=== PATIENT | male | born 1985 | race Caucasian/White ===

== ENCOUNTER 2016-07-17 23:02 | Inpatient (IN) | payer OTHER ==
[~2016-07-17] VITALS: Ht 185.4 cm; Wt 77.4 kg
[~2016-07-17 23:02] MED LIST: ATARAX,VISTARIL25 MG PO; CITALOPRAM HBR20 MG PO; CLONIDINE HCL0.1 MG PO; NOHOMEMEDS; TRAZODONE HCL50 MG PO; ZOFRAN4 MG PO
[2016-07-18 00:25] LABS: EOSINOPHIL (%) 0.2 % (0-5); HEMATOCRIT 37.4 % (38.0-50.0); IMMATURE GRANULOCYTE (%) 0.4 % (0.0-0.7); IMMATURE GRANULOCYTE COUNT 0.6 K/uL; LYMPHOCYTE COUNT 1.7 K/uL (1.0-2.8); MCH 28.3 PG (29.0-34.0); MCV 83.5 FL (86-99); MEAN PLAT.VOLUME 9.8 uM^3 (9.0-12.4); MONOCYTE COUNT 0.9 K/uL (0-0.8); NEUTROPHIL (%) 81.6 % (45-76); NEUTROPHIL COUNT 11.9 K/uL (1.8-6.4); PLATELET COUNT 255 K/uL (156-360); RBC DIS.WIDTH-CV 13.7 % (11.8-14.6); RBC DIS.WIDTH-SD 40.7 % (39-53); RED BLOOD COUNT 4.48 M/uL (4.00-5.50); WHITE BLOOD COUNT 14.6 K/uL (4.1-10.2)
[2016-07-18 00:33] LABS: CHLORIDE 99 mEq/L (99-109); POTASSIUM 3.9 mEq/L (3.7-5.4); SODIUM 135 mEq/L (136-147)
[2016-07-18 00:36] LABS: GLUCOSE 159 mg/dL (70-99)
[2016-07-18 00:37] LABS: ANION GAP 10 MEQ/L (2-14); TOTAL BILIRUBIN 0.3 mg/dL (0.0-1.0)
[2016-07-18 00:38] LABS: SERUM ETHYL ALCOHOL < 10 mg/dL
[2016-07-18 00:39] LABS: ALKALINE PHOSPHATASE 88 IU/L (3-129); GFR ESTIMATE (CALCULATED) > 59 mL/min/
[2016-07-18 00:40] LABS: UREA NITROGEN (BUN) 16 mg/dL (9-23)
[2016-07-18 00:52] LABS: CREATINE KINASE 2747 IU/L (1-294)
[2016-07-18 00:53] LABS: TROP-I INTERPRETATION NEGATIVE; TROPONIN-I < 0.01 ng/mL (0.0-0.30)
[2016-07-18] MEDS ORDERED: SEROQUEL300 MG PO (01:15)
[2016-07-18] MEDS ORDERED: CYMBALTA60 MG PO (01:16)
[2016-07-18] MEDS ORDERED: ALPRAZOLAM0.5 MG PO (01:16)
[2016-07-18 06:18] VITALS: BP 120/67
[2016-07-18 07:32] LABS: HEMATOCRIT 36.3 % (38.0-50.0); MCH 28.4 PG (29.0-34.0); MCHC 33.1 G/DL (30.0-36.0); MEAN PLAT.VOLUME 10.2 uM^3 (9.0-12.4); PLATELET COUNT 193 K/uL (156-360); RBC DIS.WIDTH-CV 13.9 % (11.8-14.6); RBC DIS.WIDTH-SD 43.6 % (39-53); RED BLOOD COUNT 4.22 M/uL (4.00-5.50)
[2016-07-18 07:35] LABS: WHITE BLOOD COUNT 8.5 K/uL (4.1-10.2)
[2016-07-18 07:39] LABS: ANION GAP 5 MEQ/L (2-14); CHLORIDE 100 MEQ/L (99-109); GFR ESTIMATE (CALCULATED) > 59 mL/min/; GLUCOSE 141 mg/dL (70-99); POTASSIUM 3.4 MEQ/L (3.7-5.4); SAMPLE HEMOLYSIS CHECK 0; SAMPLE ICTERIC CHECK 0; SAMPLE LIPEMIA CHECK 0; SODIUM 134 MEQ/L (136-147); UREA NITROGEN (BUN) 12 mg/dL (9-23)
[2016-07-18 07:43] VITALS: BP 111/63
[2016-07-18 11:32] VITALS: BP 117/65
[2016-07-18 15:08] LABS: TOTAL CK 1327 IU/L (1-294)
[2016-07-18 15:10] LABS: CREATINE KINASE 1327 IU/L (1-294)
[2016-07-18 15:32] VITALS: BP 117/64
[2016-07-18 15:44] LABS: CK-MB 4.7 ng/mL (0.0-4.9)
[2016-07-18 19:44] VITALS: BP 116/70
[2016-07-18 23:50] VITALS: BP 117/73
[2016-07-19 04:29] VITALS: BP 111/57
[2016-07-19 05:39] LABS: HEMATOCRIT 36.4 % (38.0-50.0); MCH 28.8 PG (29.0-34.0); MCV 87.3 FL (86-99); MEAN PLAT.VOLUME 10.3 uM^3 (9.0-12.4); PLATELET COUNT 169 K/uL (156-360); RBC DIS.WIDTH-SD 44.3 % (39-53); RED BLOOD COUNT 4.17 M/uL (4.00-5.50); WHITE BLOOD COUNT 7.3 K/uL (4.1-10.2)
[2016-07-19 06:06] LABS: ANION GAP 8 MEQ/L (2-14); CHLORIDE 103 MEQ/L (99-109); GFR ESTIMATE (CALCULATED) > 59 mL/min/; POTASSIUM 3.6 MEQ/L (3.7-5.4); SAMPLE HEMOLYSIS CHECK 0; SAMPLE ICTERIC CHECK 0; SAMPLE LIPEMIA CHECK 0; SODIUM 139 MEQ/L (136-147); UREA NITROGEN (BUN) 7 mg/dL (9-23)
[2016-07-19 06:07] LABS: GLUCOSE 92 mg/dL (70-99)
[2016-07-19 07:53] VITALS: BP 112/62
[2016-07-19 11:09] VITALS: BP 119/72
[2016-07-19 11:39] LABS: HBSG INDEX 0.23
[2016-07-19 11:41] LABS: ANTI-HEPATITIS A VIRUS (IGM) Nonreactive; HAV INDEX 0.28
[2016-07-19 11:43] LABS: ANTI-HEPATITIS B CORE (IGM) Nonreactive; HBC IgM INDEX 0.11; HIV INDEX 0.08; HIV-1/2 AB/AG COMBO Nonreactive
[2016-07-19 11:50] LABS: HPCA INDEX 15.26
[2016-07-19 16:08] VITALS: BP 123/73
[2016-07-19 19:31] VITALS: BP 121/78
[2016-07-19 23:53] VITALS: BP 118/78
[2016-07-20 03:54] VITALS: BP 98/57
[2016-07-20 05:58] LABS: EOSINOPHIL (%) 2.2 % (0-5); EOSINOPHIL COUNT 0.2 K/uL (0-0.3); HEMATOCRIT 37.7 % (38.0-50.0); IMMATURE GRANULOCYTE (%) 0.3 % (0.0-0.7); LYMPHOCYTE COUNT 2.6 K/uL (1.0-2.8); MCH 28.3 PG (29.0-34.0); MCHC 32.6 G/DL (30.0-36.0); MCV 86.9 FL (86-99); MEAN PLAT.VOLUME 10.2 uM^3 (9.0-12.4); MONOCYTE (%) 6.7 % (3-12); MONOCYTE COUNT 0.5 K/uL (0-0.8); NEUTROPHIL (%) 53.7 % (45-76); NEUTROPHIL COUNT 3.7 K/uL (1.8-6.4); PLATELET COUNT 195 K/uL (156-360); RBC DIS.WIDTH-CV 13.6 % (11.8-14.6); RBC DIS.WIDTH-SD 43.3 % (39-53); RED BLOOD COUNT 4.34 M/uL (4.00-5.50); WHITE BLOOD COUNT 6.9 K/uL (4.1-10.2)
[2016-07-20 06:21] LABS: ANION GAP 5 MEQ/L (2-14); CHLORIDE 106 MEQ/L (99-109); GFR ESTIMATE (CALCULATED) > 59 mL/min/; GLUCOSE 98 mg/dL (70-99); POTASSIUM 4.3 MEQ/L (3.7-5.4); SAMPLE HEMOLYSIS CHECK 0; SAMPLE ICTERIC CHECK 0; SAMPLE LIPEMIA CHECK 0; SODIUM 141 MEQ/L (136-147); UREA NITROGEN (BUN) 4 mg/dL (9-23)
[2016-07-20 08:22] VITALS: BP 112/71
[2016-07-20 10:40] LABS: CREATINE KINASE 671 IU/L (1-294)
[2016-07-20 11:49] VITALS: BP 113/68
[2016-07-20 15:58] VITALS: BP 119/76
[2016-07-20 19:27] VITALS: BP 120/80
[2016-07-20 23:33] VITALS: BP 122/81
[2016-07-21 03:30] VITALS: BP 94/55
[2016-07-21 08:07] VITALS: BP 132/82
[2016-07-21 09:12] VITALS: BP 132/82
[2016-07-21] MEDS ORDERED: LEVAQUIN500 MG PO (10:11)
[2016-07-21] MEDS ORDERED: PERCOCET 5/31 TABLET PO (10:11)
[2016-07-21] MEDS ORDERED: IBUPROFEN800 MG PO (10:24)
== END 2016-07-21 12:41 | disposition home or self-care (01) | DRG 564 ==
LOC: EME → TRA → EDBD 23:02 → TRA 23:02 → EME 23:02 → EDOF 07-18 02:36 → 3EAST 07-18 02:36 → EDOF 07-18 02:36 → 3EAST 07-18 04:42
PROVIDERS: Emergency Medicine; Hospitalist; Internal Medicine; Surgery
DX: S02.81XA Fracture of other specified skull and facial bones, right side, initial encounter for closed fracture (principal); J98.51 Mediastinitis; S22.22XA Fracture of body of sternum, initial encounter for closed fracture; F11.23 Opioid dependence with withdrawal; T79.7XXA Traumatic subcutaneous emphysema, initial encounter; J98.11 Atelectasis; F33.9 Major depressive disorder, recurrent, unspecified; T40.2X1A Poisoning by other opioids, accidental (unintentional), initial encounter; S00.11XA Contusion of right eyelid and periocular area, initial encounter; S00.12XA Contusion of left eyelid and periocular area, initial encounter; W19.XXXA Unspecified fall, initial encounter; G80.9 Cerebral palsy, unspecified; F41.9 Anxiety disorder, unspecified; F17.210 Nicotine dependence, cigarettes, uncomplicated; G89.11 Acute pain due to trauma; T79.6XXA Traumatic ischemia of muscle, initial encounter; S80.211A Abrasion, right knee, initial encounter; S40.812A Abrasion of left upper arm, initial encounter; S40.811A Abrasion of right upper arm, initial encounter; S20.311A Abrasion of right front wall of thorax, initial encounter; S20.312A Abrasion of left front wall of thorax, initial encounter; Z82.49 Family history of ischemic heart disease and other diseases of the circulatory system; Y92.019 Unspecified place in single-family (private) house as the place of occurrence of the external cause; Z91.041 Radiographic dye allergy status
CPT/HCPCS: 70450; 70486; 71020; 71250; 74176; 74220; 80048; 80053; 80074; 81003; 82550; 82550 91; 82553; 83735; 84100; 84484; 85025; 85027; 86703; 93005; 99281; 99285; G0480; J0572; J1170; J1956; J2270; J3480; J7030; S0028

== ENCOUNTER 2016-09-30 08:03 | Emergency (ER) | payer OTHER ==
[~2016-09-30] VITALS: Ht 188 cm; Wt 78.3 kg
[~2016-09-30 08:03] MED LIST changes: +ALPRAZOLAM0.5 MG PO; +CYMBALTA60 MG PO; +IBUPROFEN800 MG PO; +LEVAQUIN500 MG PO; +PERCOCET 5/31 TABLET PO; +SEROQUEL300 MG PO
[2016-09-30 09:02] LABS: EOSINOPHIL (%) 0 % (0-5); HEMATOCRIT 38.9 % (38.0-50.0); IMMATURE GRANULOCYTE COUNT 0.2 K/uL; INSTRUMENT ABS NEUTROPHIL CT 19.9 K/uL; LYMPHOCYTE COUNT 1.2 K/uL (1.0-2.8); MCHC 32.1 G/DL (30.0-36.0); MCV 87.2 FL (86-99); MEAN PLAT.VOLUME 9.2 uM^3 (9.0-12.4); MONOCYTE (%) 2.8 % (3-12); MONOCYTE COUNT 0.6 K/uL (0-0.8); NEUTROPHIL (%) 90.5 % (45-76); NEUTROPHIL COUNT 19.9 K/uL (1.8-6.4); PLATELET COUNT 256 K/uL (156-360); RBC DIS.WIDTH-CV 13.3 % (11.8-14.6); RBC DIS.WIDTH-SD 42.2 % (39-53); RED BLOOD COUNT 4.46 M/uL (4.00-5.50)
[2016-09-30 09:13] LABS: CHLORIDE 105 mEq/L (99-109); POTASSIUM 3.8 mEq/L (3.7-5.4); SODIUM 137 mEq/L (136-147)
[2016-09-30 09:15] LABS: GLUCOSE 160 mg/dL (70-99)
[2016-09-30 09:16] LABS: ANION GAP 12 MEQ/L (2-14)
[2016-09-30 09:18] LABS: SERUM ETHYL ALCOHOL < 10 mg/dL
[2016-09-30 09:19] LABS: GFR ESTIMATE (CALCULATED) > 59 mL/min/
[2016-09-30 09:20] LABS: UREA NITROGEN (BUN) 12 mg/dL (9-23)
[2016-09-30 09:48] LABS: ADD MIUA? YES; BILIRUBIN NEGATIVE; BLOOD NEGATIVE; COLOR AMBER ((YELLOW)); GLUCOSE (STRIP) NEGATIVE; KETONES NEGATIVE; LEUKOCYTES NEGATIVE; NITRITE NEGATIVE; PROTEIN (STRIP) 100; SPECIFIC GRAVITY 1.021 (1.000-1.030); UROBILINOGEN 0.2 MG/DL (0.2-1.0)
[2016-09-30 09:58] LABS: AMPHETAMINE NEGATIVE (500 ng/mL); BARBITURATES NEGATIVE (200 ng/mL); BENZODIAZEPINES NEGATIVE (150 ng/mL); COCAINE PRESUMPTIVE POSITIVE (150 ng/mL); INTERNAL CONTROLS VALID? YES; METHADONE NEGATIVE (200 ng/mL); METHAMPHETAMINE NEGATIVE (500 ng/mL); OPIATES (MORPHINE) PRESUMPTIVE POSITIVE (100 ng/mL); OXYCODONE NEGATIVE (100 ng/mL); PHENCYCLIDINE NEGATIVE (25 ng/mL); PROPOXYPHENE NEGATIVE (300 ng/mL); THC CANNABINOIDS NEGATIVE (50 ng/mL); TRICYCLIC ANTIDEPRESSANTS NEGATIVE (300 ng/mL)
[2016-09-30 09:59] LABS: ADD MEDTOX COMMENT Y
[2016-09-30 10:12] LABS: BACTERIA 1+ /HPF; EPITHELIAL CELLS 1+ /HPF; MUCUS 2+ /LPF; RED BLOOD CELLS NONE SEEN /HPF (0-5); WHITE BLOOD CELLS 0-5 /HPF (0-5)
[2016-09-30 10:52] LABS: OPIATES QUANTITATIVE VALUE 0 NG/ML
[2016-09-30] MEDS ORDERED: NARCAN4 MG NS (14:14)
[2016-09-30 14:22] VITALS: BP 102/74
== END 2016-09-30 14:24 | disposition home or self-care (01) ==
LOC: EME 08:03
PROVIDERS: Emergency Medicine
DX: F11.10 Opioid abuse, uncomplicated (principal); F14.10 Cocaine abuse, uncomplicated; D72.829 Elevated white blood cell count, unspecified; B19.20 Unspecified viral hepatitis C without hepatic coma; G80.9 Cerebral palsy, unspecified; F17.200 Nicotine dependence, unspecified, uncomplicated
CPT/HCPCS: 71010; 80048; 81003; 84999; 85025; 99281; 99285; G0480; J2310